=== PATIENT | female | born 1965 ===

== ENCOUNTER 2021-09-07 11:55 | Outpatient (CLI) | payer OTHER | END 2021-09-07 11:56 | disposition home or self-care (01) | LOC: CSHMAMMO 11:55 | PROVIDERS: ATTEND Urology | DX: Z12.31 Encounter for screening mammogram for malignant neoplasm of breast (principal); N64.89 Other specified disorders of breast; Z80.3 Family history of malignant neoplasm of breast | CPT/HCPCS: 77063; 77067 ==